=== PATIENT | female | born 1985 ===

== ENCOUNTER 2019-01-07 07:17 | Emergency (ER) | payer BC ==
[2019-01-07 07:37] VITALS: BP 116/74
--- NOTE | 2019-01-07 08:22 | UC ---
Lower Extremity/Ankle HPI - HPI Summary HPI Summary: 33-year-old woman comes in with a chief complaint of left ankle pain. Yesterday when she was getting off of a bus she inverted rolled her left ankle. She did fall on the ground and abraded her right knee. She is able to ambulate but with pain. Patient is 31 weeks . Pain is worse with ambulation it's better with rest. When she woke this morning the pain was still pretty severe therefore she came to get checked out. No decreased range of motion. No loss of sensation. No complaint of right knee pain. - History of Current Complaint Chief Complaint: UCLowerExtremity Stated Complaint: LT ANKLE INJURY Time Seen by Provider: 01/07/19 08:11 Pain Intensity: 2 - Allergies/Home Medications Allergies/Adverse Reactions: Allergies Allergy/AdvReac Type Severity Reaction Status Date / Time No Known Allergies Allergy Verified 01/07/19 07:30 Home Medications: Home Medications Vitamin TAB* 1 tab PO DAILY 01/07/19 [History Confirmed 01/07/19] PMH/Surg Hx/FS Hx/Imm Hx Previously Healthy: Yes - 31 WEEKS - Surgical History Surgical History: None - Family History Known Family History: Positive: Non-Contributory - Social History Alcohol Use: None Substance Use Type: None Smoking Status (MU): Never Smoked Tobacco Review of Systems All Other Systems Reviewed And Are Negative: Yes Constitutional: Positive: Negative Skin: Positive: Other - ABRASION RT KNEE Eyes: Positive: Negative ENT: Positive: Negative Respiratory: Positive: Negative Cardiovascular: Positive: Negative Gastrointestinal: Positive: Other - Motor: Positive: Negative Neurovascular: Positive: Negative Musculoskeletal: Positive: Other: - SEE HPI Neurological: Positive: Negative Psychological: Positive: Negative Is Patient Immunocompromised?: No Physical Exam Triage Information Reviewed: Yes Appearance: Well-Appearing, No Pain Distress, Well-Nourished Vital Signs: Initial Vital Signs Temp 97.9 F 01/07/19 07:31 Pulse 124 01/07/19 07:31 Resp 18 01/07/19 07:31 BP 116/74 01/07/19 07:31 Pulse Ox 98 01/07/19 07:31 Vital Signs Reviewed: Yes Eye Exam: Normal Eyes: Positive: Conjunctiva Clear Neck: Positive: Supple Respiratory: Positive: Normal breath sounds Abdomen Description: Positive: Other: - 31 WEEKS Musculoskeletal: Positive: Other: - Left ankle left ankle has some swelling just distal to the fibula. It's tender to palpation over the swelling area. Achilles tendon is intact ankle has full range of motion normal capillary refill no sensation deficit. There is no tenderness to palpation over the bony aspects of the distal fibula or the medial malleolus or the proximal fifth metatarsal or the medial aspect of the midfoot. Neurological Exam: Normal Neurological: Positive: Alert, Muscle Tone Normal Psychological Exam: Normal Psychological: Positive: Age Appropriate Behavior Skin: Positive: Other - ABRASION RT KNEE; NO ERYTHEMA. Lower Extremity Course/Dx - Course Course Of Treatment: Based on the [place] criteria the risk of fracture is low. Therefore no x-ray at this time. Patient is 31 weeks' and she wished to avoid x-rays if possible. We discussed the [place] criteria and at this time clinically on physical exam no evidence of fracture. Randy wrap and gel splint were placed by nursing neurovascularly intact after placement. Patient's also could have crutches. She's been icing it elevated. Because she is she will not be taking ibuprofen to be weightbearing as tolerated. Increase range of motion as possible I did let them know that if the pain did not improve as expected with a sprain that they should return here to reconsider the x-ray. Also if not improving can follow up with sports medicine... - Differential Dx/Diagnosis Provider Diagnosis: Left ankle sprain Discharge - Sign-Out/Discharge Documenting (check all that apply): Patient Departure All imaging exams completed and their final reports reviewed: No Studies - Discharge Plan Condition: Stable Disposition: HOME Patient Education Materials: Ankle Sprain (ED), Crutch Instructions (ED) Referrals: Violeta Prieto NP [Primary Care Provider] - Additional Instructions: RETURN HERE OR FOLLOW UP WITH SPORTS MEDICINE IF NOT COMPLETELY IMPROVED. GET RECHECKED SOONER IF YOUR CONDITION WORSENS; UNABLE TO BEAR WEIGHT OR ANY QUESTIONS OR CONCERNS. - Billing Disposition and Condition Condition: STABLE Disposition: Home
== END 2019-01-07 08:45 | disposition home or self-care (01) ==
LOC: UCEAST 07:17
DX: O26.893 Other specified pregnancy related conditions, third trimester (principal); S93.402A Sprain of unspecified ligament of left ankle, initial encounter; S80.211A Abrasion, right knee, initial encounter; V48.4XXA Person boarding or alighting a car injured in noncollision transport accident, initial encounter; Y92.410 Unspecified street and highway as the place of occurrence of the external cause; Z3A.31 31 weeks gestation of pregnancy
CPT/HCPCS: 99213; G0463